=== PATIENT | female | born 1970 ===

== ENCOUNTER → 2018-09-17 21:24 | Outpatient (REF) | payer OTHER, MEDICAID, SELFPAY ==
[2018-09-17 21:58] LABS: Add Manual Diff / Slide Review NO; Basophils Percent Auto 0.3 % (0-2); Hematocrit 39.4 % (36-46); Hemoglobin 12.8 g/dL (12.0-16.0); Mean Corpuscular HGB Conc 32.5 % (30-36); Mean Corpuscular Hemoglobin 27.5 PG (26-34); Mean Corpuscular Volume 84.5 fL (80-100); Neutrophils Absolute Auto 1400 /uL (1500-7000); Neutrophils Percent Auto 42.7 % (50-75); Platelet Count 187 X10^3/uL (150-400); Red Blood Cell Count 4.67 X10^6/uL (4.0-5.2); Red Cell Distribution Width 12.3 % (11.6-14.8); White Blood Cell Count 3.2 X10^3/uL (4.5-11.0)
[2018-09-17 22:25] LABS: Blood Urea Nitrogen 7 mg/dL (7-17); Calcium 9.6 mg/dL (8.4-10.2); Carbon Dioxide 28 mmol/L (22-32); Chloride 102 mmol/L (98-107); Estimated Glomerular Filt Rate > 60.0 mL/min (>60); Glucose 98 mg/dL (70-100); HEMOLYSIS < 15 (0-50); Potassium 4.5 mmol/L (3.4-5.1); Sodium 139 mmol/L (137-145)
[2018-09-17 22:45] LABS: Free T3, Triiodothyronine Free 9.04 pg/mL (2.77-5.27)
[2018-09-17 22:58] LABS: Thyroid Stimulating Hormone < 0.02 uIU/mL (0.47-4.68)
== END ==
LOC: LAB 21:24
PROVIDERS: Visit Provider Naturopath
DX: E05.90 Thyrotoxicosis, unspecified without thyrotoxic crisis or storm (principal)
CPT/HCPCS: 36415; 80048; 84436; 84443; 84481; 85025

== ENCOUNTER → 2019-02-17 22:05 | Outpatient (ROUT) | payer OTHER, MEDICAID, SELFPAY ==
[2019-02-18 02:24] LABS: T4 Total Thyroxine > 24.89 ug/dL (5.5-11.0)
[2019-02-18 02:25] LABS: Thyroid Stimulating Hormone < 0.02 uIU/mL (0.47-4.68)
[2019-02-18 02:26] LABS: Free T3, Triiodothyronine Free > 22.80 pg/mL (2.77-5.27)
== END ==
PROVIDERS: Visit Provider Naturopath
DX: E05.90 Thyrotoxicosis, unspecified without thyrotoxic crisis or storm (principal)
CPT/HCPCS: 36415; 84436; 84443; 84481